=== PATIENT | male | born 1940 | race Two or more races ===

== ENCOUNTER 2018-08-04 11:37 | Emergency (ER) | payer OTHER ==
[~2018-08-04] VITALS: Ht 170.2 cm; Wt 79.4 kg
[~2018-08-04 11:37] MED LIST: ATENOLOL100 MG; CIPRO100 MG; CIPRO250 MG PO; DALMANE30 MG; LEVAQUIN750 MG PO; LOTREL 5-20 MG1 CAP PO; RANITIDINE HCL300 MG
[2018-08-04] MEDS ORDERED: CLONAZEPAM0.5 M1 PO (12:02)
== END 2018-08-04 14:22 | disposition home or self-care (01) ==
LOC: ER 11:37
DX: G51.0 Bell's palsy (principal)

== ENCOUNTER 2024-07-30 16:50 | Emergency (ER) | payer OTHER ==
[~2024-07-30] VITALS: Ht 170.2 cm; Wt 79.4 kg
[~2024-07-30 16:50] MED LIST changes: +CLONAZEPAM0.5 M1 PO
[2024-07-30 18:06] LABS: ABG PH 7.396 (7.35-7.45); ABG PO2 82.4 mmHg (80-100); ABG pCO2 36.9 mmHg (35-45); BASE EXCESS -2.1 mmol/l; BICARBONATE 22.2 mmol/l (23-25); SaO2 95.9 %; Tco2 23.3 mmol/l
[2024-07-30 18:16] LABS: allen test SATISFACTORY; o2 21 %; puncture site RADIAL RIGHT
[2024-07-30 18:36] LABS: HEMATOCRIT 50.4 % (39.0-48.0); HEMOGLOBIN 17.1 g/dL (13-16.00); MEAN CELL VOLUME 91.5 fL (80.0-100.00); MEAN CORPUSCULAR HGB CONC 33.9 g/dl (32.0-36.0); PLATELET COUNT 232 K/uL (150-450); RED CELL DISTRIBUTION WIDTH 14.9 % (11.5-14.5)
[2024-07-30 18:52] LABS: INR 1.02; PARTIAL THROMBOPLASTIN TIME 29.9 SECONDS (22.0-34.0); PROTHROMBIN TIME 11.1 SECONDS (9.0-11.5)
[2024-07-30 18:58] LABS: ALBUMIN 3.9 gm/dL (3.4-5.0); BILIRUBIN TOTAL 1.08 mg/dL (0.3-1.2); CALCIUM 9.8 mg/dL (8.5-10.1); CREATININE SERUM 1.97 mg/dL (0.70-1.30); GFR 32.63; GLOBULINA 4.7 G/DL (2.4-3.5); POTASSIUM 3.82 mEq/L (3.5-5.1); TOTAL PROTEIN 8.6 gm/dL (6.4-8.2)
[2024-07-30 19:50] LABS: URINE APPEARANCE Clear; URINE BILIRRUBIN Negative (NEGATIVE); URINE BLOOD Negative; URINE COLOR Yellow; URINE GLUCOSE Negative (NEGATIVE); URINE KETONE Negative (NEGATIVE); URINE LEUKOCYTE Negative; URINE NITRATE Negative; URINE PROTEIN Trace (NEGATIVE); URINE UROBILINOGEN 0.2 E.U./dl
[2024-07-30 19:55] LABS: URINE BACTERIA 8.8 uL (0.0-1933); URINE WBC 1.9 uL (0.0-23.2)
[2024-07-30 20:07] LABS: URINE EPITHELIAL CELLS 0.6 uL (0.0-38.8); URINE RBC 1.2 uL (0.0-20.8)
== END 2024-07-30 20:37 | disposition home or self-care (01) ==
LOC: ER 16:50
PROVIDERS: General Practice
DX: S00.93XA Contusion of unspecified part of head, initial encounter (principal); W18.39XA Other fall on same level, initial encounter; Y93.89 Activity, other specified; Y92.012 Bathroom of single-family (private) house as the place of occurrence of the external cause; Y99.9 Unspecified external cause status; R53.81 Other malaise; Z20.822 Contact with and (suspected) exposure to COVID-19; I10 Essential (primary) hypertension

== ENCOUNTER 2025-01-30 20:24 | Inpatient (IN) | payer OTHER ==
[~2025-01-30] VITALS: Ht 170.2 cm; Wt 79.4 kg
[2025-01-30] MEDS ORDERED: LOTREL 10-20 M1 EACH (20:28)
--- NOTE | 2025-01-30 20:28 | NUR ---
PTE ALERTA Y ORIENTADO X3, LLEGA EN AMBULANCIA EN COMPANIA DE PARAMEDICOS Y FAMILIAR. REFIERE DESDE IMANI FIEBRE Y ARDOR AL ORINAR. SE WING SV SE UBICA
[2025-01-30] MEDS ORDERED: CEFTRIAXONE SODIUM 2,000 MG VIAL IV ONE (20:45)
[2025-01-30] MEDS ORDERED: 0.9 % SODIUM CHLORIDE 1,000 ML IV SCH (20:45)
[2025-01-30] MEDS ORDERED: ACETAMINOPHEN 500 MG GEL..CAP PO ONE ×2 (20:45→20:50)
[2025-01-30] MEDS ORDERED: CEFTRIAXONE SODIUM 2,000 MG VIAL ONE (20:51)
[2025-01-30 21:27] LABS: HEMATOCRIT 46.2 % (39.0-48.0); HEMOGLOBIN 15.9 g/dL (13-16.00); MEAN CELL VOLUME 88.6 fL (80.0-100.00); MEAN CORPUSCULAR HEMOGLOBIN 30.4 pg (27.00-32.0); MEAN CORPUSCULAR HGB CONC 34.3 g/dl (32.0-36.0); PLATELET COUNT 183 K/uL (150-450); RED BLOOD COUNT 5.22 M/uL (4.00-6.00); RED CELL DISTRIBUTION WIDTH 14.9 % (11.5-14.5)
--- NOTE | 2025-01-30 21:33 | NUR ---
SE ORIENTA A PTE SOBRE TX MEDICO,REFIERE ACEPTAR. SE COELCTAN MUESTRAS DE LAB BAJO MEDIDAS ASEPTICAS Y SE ADMINISTRAN MEDS SALTY ORDEN MEDICA. PTE PREVIAMENTE CANALIZADO DE AMBULANCIA PATENTE.
[2025-01-30 21:57] LABS: URINE APPEARANCE Clear; URINE BACTERIA 53.8 uL (0.0-1933); URINE BILIRRUBIN Negative (NEGATIVE); URINE BLOOD Small; URINE COLOR Yellow; URINE EPITHELIAL CELLS 39.7 uL (0.0-38.8); URINE GLUCOSE Negative (NEGATIVE); URINE KETONE Negative (NEGATIVE); URINE LEUKOCYTE Negative; URINE NITRATE Negative; URINE RBC 11.9 uL (0.0-20.8); URINE UROBILINOGEN 0.2 E.U./dl; URINE WBC 42.7 uL (0.0-23.2)
[2025-01-30 22:00] LABS: COVID-19 AG NEGATIVE (NEGATIVE)
[2025-01-30 22:03] LABS: INFLUENZA A AG NEGATIVE (NEGATIVE)
[2025-01-30 22:08] LABS: ALBUMIN 3.2 gm/dL (3.4-5.0); BILIRUBIN TOTAL 1.66 mg/dL (0.3-1.2); CALCIUM 8.4 mg/dL (8.5-10.1); CREATININE SERUM 1.97 mg/dL (0.70-1.30); GFR 32.55; GLOBULINA 3.7 G/DL (2.4-3.5); POTASSIUM 3.82 mEq/L (3.5-5.1); TOTAL PROTEIN 6.9 gm/dL (6.4-8.2)
[2025-01-30 22:12] LABS: PROSTATIC SPECIFIC ANTIGEN 11.6 NG/ML (0.010-4.00)
[2025-01-30 22:16] LABS: URINE CAST 0.29 uL (0.0-1.40); URINE PROTEIN 100 (NEGATIVE)
[2025-01-30] MEDS ORDERED: AZITHROMYCIN 500 MG in DEXTROSE 5 % IN WATER 250 ML IV SCH (23:10)
[2025-01-30] MEDS ORDERED: CEFTRIAXONE SODIUM 2,000 MG in 0.9 % SODIUM CHLORIDE 100 ML IV SCH (23:10)
[2025-01-30] MEDS ORDERED: SODIUM POLYSTYRENE SULFONATE 15 G/4 TSP TSP PO ONE (23:15)
[2025-01-30] MEDS ORDERED: ACETAMINOPHEN 500 MG GEL..CAP PO PRN (23:15)
[2025-01-31] MEDS ORDERED: CLONAZEPAM 1 MG TABLET PO SCH (00:09)
[2025-01-31] MEDS ORDERED: CEFTRIAXONE SODIUM 2,000 MG in 0.9 % SODIUM CHLORIDE 100 ML IV SCH (00:09)
[2025-01-31] MEDS ORDERED: FAMOTIDINE/PF 20 MG in 0.9 % SODIUM CHLORIDE 8 ML IV PUSH SCH ×2 (00:10→09:00)
[2025-01-31] MEDS ORDERED: ACETAMINOPHEN 500 MG GEL..CAP PO PRN (00:15)
[2025-01-31] MEDS ORDERED: 0.9 % SODIUM CHLORIDE 1,000 ML IV SCH (00:15)
[2025-01-31] MEDS ORDERED: IPRATROPIUM BROMIDE 0.5 MG/2.5 ML AMPUL.NEB IH SCH (01:00)
[2025-01-31] MEDS ORDERED: FUROsemide 20 MG/2 ML VIAL IV SCH (01:00)
[2025-01-31 03:21] LABS: INR 1.1; PROTHROMBIN TIME 11.9 SECONDS (9.0-11.5)
[2025-01-31 03:43] LABS: D DIMER 0.65 MG/L; PARTIAL THROMBOPLASTIN TIME 31.3 SECONDS (22.0-34.0)
[2025-01-31 04:33] VITALS: BP 126/66; O2SAT 96
[2025-01-31 06:03] VITALS: BP 133/80; O2SAT 99
[2025-01-31] MEDS ORDERED: 0.9 % SODIUM CHLORIDE 10 ML VIAL IJ ONE (08:41)
[2025-01-31] MEDS ORDERED: AMLODIPINE BESYLATE 10 MG TABLET PO SCH (09:00)
[2025-01-31] MEDS ORDERED: AMLODIPINE BESYLATE 5 MG TABLET PO SCH (09:00)
[2025-01-31] MEDS ORDERED: ENOXAPARIN SODIUM 40 MG/0.4 ML SYRINGE SUBCUTANEO SCH (09:00)
[2025-01-31] MEDS ORDERED: ENOXAPARIN SODIUM 80 MG/0.8 ML SYRINGE SUBCUTANEO SCH (09:00)
[2025-01-31] MEDS ORDERED: METOPROLOL SUCCINATE 25 MG TAB.SR.24H PO SCH (09:00)
[2025-01-31 18:16] VITALS: BP 146/74; O2SAT 98
[2025-02-01 02:20] VITALS: BP 119/66; O2SAT 98
[2025-02-01 08:25] VITALS: BP 146/79
[2025-02-01 15:29] LABS: ALBUMIN 3.8 gm/dL (3.4-5.0); BILIRUBIN TOTAL 0.75 mg/dL (0.3-1.2); BILIRUBIN,CONJUGATED 0.19 mg/dL (0.0-0.2); BILIRUBIN,UNCONJUGATED 0.56 mg/dL (0.0-0.6); CREATININE SERUM 1.78 mg/dL (0.70-1.30); GFR 36.6; GLOBULINA 5.3 G/DL (2.4-3.5); POTASSIUM 3.47 mEq/L (3.5-5.1); TOTAL PROTEIN 9.1 gm/dL (6.4-8.2)
[2025-02-01 15:47] LABS: BASO % 0.5 % (0.1-1.2); EOS # 0.19 (0.04-0.54); HEMATOCRIT 53.1 % (40.1-51.0); HEMOGLOBIN 17.7 g/dL (13.7-17.5); LYMPH # 1.86 (1.18-3.74); LYMPH % 19.2 % (19.3-53.1); MEAN CORPUSCULAR HEMOGLOBIN 29.6 pg (25.6-32.2); MONO # 1.11 (0.24-0.82); MONO % 11.5 % (4.7-12.5); NEUT # 6.38 (1.56-6.13); NEUT % 65.8 % (34.0-71.1); PLATELET COUNT 261 K/uL (163-369); RED BLOOD COUNT 5.97 M/uL (4.63-6.08); RED CELL DISTRIBUTION WIDTH 14.5 % (11.6-14.4)
[2025-02-01 16:48] VITALS: BP 122/63; O2SAT 98
[2025-02-01] MEDS ORDERED: CLONAZEPAM 1 MG TABLET PO SCH (21:00)
[2025-02-02 00:43] VITALS: BP 135/67; O2SAT 97
[2025-02-02 08:06] VITALS: BP 143/70
[2025-02-02] MEDS ORDERED: GUAIFENESIN 100 MG/5 ML BLIST.PACK PO SCH (13:00)
[2025-02-02 18:34] VITALS: BP 150/80; O2SAT 97
[2025-02-03 00:44] VITALS: BP 160/86; O2SAT 93
[2025-02-03 01:47] VITALS: BP 131/71
[2025-02-03 08:18] LABS: CALCIUM 8.5 mg/dL (8.5-10.1); CREATININE SERUM 1.81 mg/dL (0.70-1.30); GFR 35.9; POTASSIUM 3.64 mEq/L (3.5-5.1)
[2025-02-03 08:20] VITALS: BP 144/72
[2025-02-03 18:48] VITALS: BP 147/85; O2SAT 98
[2025-02-04 00:57] VITALS: BP 150/83; O2SAT 97
[2025-02-04 08:21] VITALS: BP 164/84; O2SAT 95
== END 2025-02-04 17:29 | disposition home or self-care (01) | DRG 689 ==
LOC: ER 20:24 → MEDJ 01-31 02:02 → SEC-K 01-31 02:02 → MEDJ 01-31 05:20
PROVIDERS: General Practice; Internal Medicine; ADMIT Internal Medicine; ATTEND Internal Medicine
PROC: BW21ZZZ Computerized Tomography (CT Scan) of Abdomen and Pelvis (ICD-10-PCS; principal; 2025-01-30)
PROC: B24BZZZ Ultrasonography of Heart with Aorta (ICD-10-PCS; 2025-01-31)
DX: N39.0 Urinary tract infection, site not specified (principal); A41.9 Sepsis, unspecified organism; N41.0 Acute prostatitis; N17.9 Acute kidney failure, unspecified; N20.0 Calculus of kidney; I48.0 Paroxysmal atrial fibrillation; I12.9 Hypertensive chronic kidney disease with stage 1 through stage 4 chronic kidney disease, or unspecified chronic kidney disease; N18.9 Chronic kidney disease, unspecified; E78.5 Hyperlipidemia, unspecified